=== PATIENT | female | born 1995 | race American Indian/Alaskan Native ===

== ENCOUNTER 2017-07-30 00:06 | Outpatient (CLI) | payer MEDICAID ==
[2017-07-30 00:52] VITALS: BP 107/61
--- NOTE | 2017-07-30 04:56 | Ultrasound Report ---
FINAL REPORT EXAM: US OB BPP WO NON-STRESS HISTORY: post dates; COMPARISON: None available. TECHNIQUE: Several real-time grayscale and color Doppler images were obtained. FINDINGS: Normal breathing movements, normal movements, normal posterior tone. Normal qualitative the amniotic fluid volume. heart rate 141 beats per minute. Largest pocket of amniotic fluid 6.0 centimeters. IMPRESSION: Biophysical profile score 8/8.
== END 2017-07-30 03:30 | disposition home or self-care (01) ==
LOC: TRG 00:06
PROVIDERS: ATTEND Obstetrics & Gynecology
DX: O99.213 Obesity complicating pregnancy, third trimester (principal); O99.013 Anemia complicating pregnancy, third trimester; O47.1 False labor at or after 37 completed weeks of gestation; E66.9 Obesity, unspecified; D64.9 Anemia, unspecified; Z87.891 Personal history of nicotine dependence; Z3A.40 40 weeks gestation of pregnancy
CPT/HCPCS: 59025; 76819

== ENCOUNTER 2017-07-30 11:43 | Outpatient (CLI) | payer MEDICAID ==
[2017-07-31 12:45] VITALS: BP 108/60
== END 2017-07-30 13:49 | disposition home or self-care (01) ==
LOC: TRG 11:43
PROVIDERS: ATTEND Obstetrics & Gynecology
DX: O99.333 Smoking (tobacco) complicating pregnancy, third trimester (principal); O99.213 Obesity complicating pregnancy, third trimester; O99.013 Anemia complicating pregnancy, third trimester; O47.1 False labor at or after 37 completed weeks of gestation; Z3A.40 40 weeks gestation of pregnancy
CPT/HCPCS: 59025

== ENCOUNTER 2017-07-30 20:39 | Inpatient (IN) | payer MEDICAID ==
[2017-07-31] MEDS ORDERED: SUBLIMAZE IV PRN (00:41)
[2017-07-31] MEDS ORDERED: ZOFRAN IV PRN ×2 (00:41→18:21)
[2017-07-31] MEDS ORDERED: ePHEDrine SULFATE IV PRN (00:41)
[2017-07-31] MEDS ORDERED: BRETHINE SUB-Q PRN (00:41)
[2017-07-31] MEDS ORDERED: NARCAN 0.4 MG/1 ML IV PRN (00:41)
[2017-07-31] MEDS ORDERED: MINERAL OIL PO PRN (00:41)
[2017-07-31] MEDS ORDERED: BRETHINE IVP PRN (00:41)
[2017-07-31] MEDS ORDERED: XYLOCAINE 2% INFILTRATI ONE ×2 (00:41→12:21)
[2017-07-31] MEDS ORDERED: STADOL IV PRN (00:41)
[2017-07-31] MEDS ORDERED: PHENERGAN PO PRN ×2 (00:41→18:21)
[2017-07-31] MEDS ORDERED: PITOCin/NS 20 UNIT/1000ML DRIP 20 UNITS/1,000 ML BAG IV SCH ×2 (01:00→18:21)
[2017-07-31] MEDS: LACTATED RINGERS 1,000 ML IV SCH ×4 (01:19→08:56)
[2017-07-31 01:29] LABS: Hematocrit 36.2 % (30.3-42.9); Hemoglobin 11.2 gm/dl (10.1-14.3); Mean Corpuscular HGB Conc 31 % (30-34); Mean Corpuscular Volume 81 fl (79-97); Platelet Count 333 K/mm3 (140-440); Red Blood Count 4.49 M/mm3 (3.65-5.03); Red Cell Distribution Width 15.1 % (13.2-15.2)
[2017-07-31 01:31] LABS: Mean Corpuscular Hemoglobin 25 pg (28-32)
[2017-07-31] MEDS ORDERED: POLYCILLIN/NS 2 GM/100 ML 2 GM/100 ML BAG IV ONE (01:38)
[2017-07-31] MEDS ORDERED: NARCAN 2 MG/2 ML IV PRN (02:14)
[2017-07-31] MEDS: ePHEDrine SULFATE IV PRN ×3 (02:49→08:58)
[2017-07-31] MEDS ORDERED: fentaNYL-BUPIV 2 MCG/ML-0.125% 200 MCG/100 ML BAG EPIDURAL SCH (03:00)
[2017-07-31] MEDS ORDERED: XYLOCAINE MPF 2% ONE (04:50)
[2017-07-31] MEDS ORDERED: XYLOCAINE TOPICAL 5% TP ONE (05:25)
[2017-07-31] MEDS ORDERED: AMPICILLIN/NS 1 GM/50 ML 1 GM/50 ML BAG IV SCH (05:30)
[2017-07-31] MEDS ORDERED: XYLOCAINE 2% UROJET UR ONE (05:30)
[2017-07-31] MEDS ORDERED: EMLA TP ONE (05:37)
--- NOTE | 2017-07-31 07:38 | History and Physical Report ---
History of Present Illness Date of examination: 07/31/17 Date of admission: 07/31/17 00:43 Chief complaint: contractions History of present illness: Pt is a 22 year old -[place] female primigravida SHAQUILLE 07/28/17 at 40w3d who presents with regular contractions and cervical change last night. Per the nurse covering overnight, she has progressed to 7 cm. She denies vaginal bleeding. She has had care at [facility] since entry into care at 18 wks complicated by late entry to care, alpha thalassemia carrier status and obesity. She is GBS positive. Past History Past Medical History: hematologic disorders (Alpha Thalassemia carrier ) Past Surgical History: no surgical history Family/Genetic History: none Social history: no significant social history - Obstetrical History Expected Date of Delivery: 07/28/17 Actual Gestation: 40 Week(s) 3 Day(s) : 1 Medications and Allergies Allergies Allergy/AdvReac Type Severity Reaction Status Date / Time No Known Allergies Allergy Verified 07/31/17 00:47 Home Medications Medication Instructions Recorded Confirmed Last Taken Type No Known Home Medications [No 07/30/17 07/30/17 Unknown History Reported Home Medications] Active Meds: Active Medications Butorphanol Tartrate (Stadol) 2 mg IV Q2H PRN PRN Reason: Pain , Severe (7-10) Ephedrine Sulfate (Ephedrine Sulfate) 10 mg IV Q2M PRN PRN Reason: Hypotension Last Admin: 07/31/17 02:49 Dose: 10 mg Fentanyl (Sublimaze) 100 mcg IV Q2H PRN PRN Reason: Labor Pain Last Admin: 07/31/17 01:19 Dose: 100 mcg Lactated Ringer's (Lactated Ringers) 1,000 mls @ 125 mls/hr IV DIRECT SAHIL Last Admin: 07/31/17 03:50 Dose: 125 mls/hr Oxytocin/Sodium Chloride (Pitocin/Ns 20 Unit/1000ml Drip) 20 units in 1,000 mls @ 125 mls/hr IV DIRECT ASHIL Fentanyl/Bupivacaine/Sodium Chlor (Fentanyl-Bupiv 2 Mcg/Ml-0.125%) 200 mcg in 100 mls @ 12 mls/hr EPIDURAL TITR SAHIL; Protocol Last Admin: 07/31/17 02:58 Dose: 12 mls/hr Ampicillin Sodium (Ampicillin/Ns 1 Gm/50 Ml) 1 gm in 50 mls @ 100 mls/hr IV Q4HR [facility]; Protocol Last Admin: 07/31/17 06:10 Dose: 100 mls/hr Mineral Oil (Mineral Oil) 30 ml PO QHS PRN PRN Reason: Constipation Naloxone HCl (Narcan 0.4 Mg/1 Ml) 0.1 mg IV Q2MIN PRN PRN Reason: Res Rate </= 8 or 02 SAT < 92% Naloxone HCl (Narcan 2 Mg/2 Ml) 0.2 mg IV Q5M PRN PRN Reason: Respiratory sedation Ondansetron HCl (Zofran) 4 mg IV Q8H PRN PRN Reason: Nausea And Vomiting Promethazine HCl (Phenergan) 25 mg PO Q6H PRN PRN Reason: Nausea And Vomiting Terbutaline Sulfate (Brethine) 0.25 mg SUB-Q ONCE PRN PRN Reason: Hyperstimulation/Hypertonicity Terbutaline Sulfate (Brethine) 0.25 mg IVP ONCE PRN PRN Reason: Hyperstimulation/Hypertonicity Review of Systems All systems: negative - Vital Signs Vital signs: Vital Signs Temp BP 98.8 F 121/62 07/30/17 22:09 07/30/17 22:09 Temp Pulse Resp BP Pulse Ox 98.6 F 92 H 18 109/59 98 07/31/17 01:32 07/31/17 07:41 07/31/17 01:49 07/31/17 07:41 07/31/17 05:46 - Physical Exam Breasts: Positive: deferred Uterus: Positive: enlarged (gravid ) Extremities: Positive: normal - Obstetrical FHR: category 2 Uterine Contraction Monitor Mode: External Cervical Dilatation: 9 Cervical Effacement Percentage: 90 station: -2 Uterine Contraction Pattern: Irregular Uterine Tone Measurement Phase: Resting Uterine Contraction Intensity: Moderate Results Result Diagrams: 07/31/17 01:00 Abnormal lab results 07/31/17 Range/Units 01:00 WBC 15.6 H (4.5-11.0) K/mm3 MCH 25 L (28-32) pg All other labs normal. Assessment and Plan A: IUP at 40w3d Active labor Obesity GBS positive status Suboptimal pain control with epidural P: Admit to labor and delivery Consult anesthesia Routine intrapartum management
--- NOTE | 2017-07-31 08:20 | Event Note ---
Date: 07/31/17 Pt comfortable now with epidural. Pt with rim/100/-2. AROM- clear fluid. FSE placed. Continue routine intrapartum management.
[2017-07-31] MEDS ORDERED: PITOCin/NS 30 UNIT/500ML 30 UNITS/500 ML BAG IV SCH (12:00)
--- NOTE | 2017-07-31 13:09 | Procedure Note ---
OB Delivery Note - Delivery Date of Delivery: 07/31/17 Surgeon: DARNELL GRIFFITH Estimated blood loss: 300cc - Vaginal Delivery presentation: vertex Delivery position: OP Intrapartum events: PROM->1hr before delivery, meconium, mult.variable deceleratio Delivery induction: none Delivery augmentation: rupture of membranes, pitocin Delivery monitor: external FHT, external uterine Route of delivery: Delivery placenta: spontaneous Delivery cord: 3 umbilical vessels Episiotomy: none Delivery laceration: 1st degree, vaginal side wall Delivery repair: vicryl Anesthesia: local, epidural Delivery comments: Pt progressed to complete/complete/+2 and pushed to delivar a viable female over intact perineum under epidural anesthesia by . Head delivered in ROP position,quickly followed by shoulders and body. bulb suctioned and placed on maternal abdomen. Cord clamped and cut. Placenta delivered spontaneously (3VC, intact). Vagina and perineum explored. Two vaginal lacerations and one labial laceration repaired with 3-0 Vicryl in a standard fashion. EBL 300 mL. - A at 1 minute: 8 at 5 minutes: 9 Infant Gender: Female (3272g (7lb 3.4 oz) @ 1211 pm)
[2017-07-31] MEDS ORDERED: METHERGINE IM ONE (16:27)
[2017-07-31] MEDS ORDERED: BENADRYL PO PRN (18:21)
[2017-07-31] MEDS ORDERED: DERMOPLAST TP PRN (18:21)
[2017-07-31] MEDS ORDERED: TYLENOL PO PRN (18:21)
[2017-07-31] MEDS ORDERED: PHENERGAN PR PRN (18:21)
[2017-07-31] MEDS ORDERED: NORCO 5/325 PO PRN (18:21)
[2017-07-31] MEDS ORDERED: TUCKS PAD TP PRN (18:21)
[2017-07-31] MEDS ORDERED: SODIUM CHLORIDE FLUSH SYRINGE 10 ML IV NR (18:21)
[2017-07-31] MEDS ORDERED: DULCOLAX PR PRN (18:21)
[2017-07-31] MEDS ORDERED: MILK OF MAGNESIA PO PRN (18:21)
[2017-07-31] MEDS ORDERED: LANSINOH TP PRN ×2 (18:21)
[2017-07-31] MEDS: FEOSOL PO SCH (22:37)
[2017-08-01] MEDS: MOTRIN PO SCH ×4 (00:06→18:33)
[2017-08-01 06:54] LABS: Hematocrit 31.9 % (30.3-42.9); Hemoglobin 10.2 gm/dl (10.1-14.3)
[2017-08-01] MEDS: FEOSOL PO SCH ×2 (10:37→21:54)
[2017-08-01] MEDS ORDERED: M-M-R II VACCINE SUB-Q ONE (13:11)
[2017-08-01] MEDS ORDERED: BOOSTRIX IM ONE (13:11)
--- NOTE | 2017-08-01 16:39 | Progress Note ---
Assessment and Plan A: PPD#1 s/p at term, Asymptomatic anemia P: Routine care. Anticipate discharge tomorrow. Subjective - Subjective Date of service: 08/01/17 Principal diagnosis: s/p at term Interval history: No overnight events. Patient reports: appetite normal, voiding normally, pain well controlled, ambulating normally : doing well, bottle feeding Objective - Vital Signs Latest vital signs: Vital Signs Temp Pulse Resp Resp BP BP Pulse Ox 08/01/17 12:09 18 08/01/17 11:48 97.9 F 94 H 20 124/66 98 08/01/17 08:36 97.9 F 81 16 113/73 98 08/01/17 00:55 98.3 F 107 H 20 113/59 08/01/17 00:06 18 07/31/17 21:02 99.1 F 104 H 18 121/64 07/31/17 21:00 16 07/31/17 18:33 98.5 F 98 H 20 110/69 Intake and Output 08/01/17 08/01/17 08/01/17 06:59 14:59 22:59 Intake Total 360 Balance 360 Intake: Intake, Free Water 360 Other: # Voids Void 1 1 - Exam Breasts: Present: deferred Cardiovascular: Present: Regular rate Lungs: Present: Clear to auscultation Abdomen: Present: soft (obese ) Uterus: Present: fundal height at umbilicus Extremities: Present: edema (trace )
--- NOTE | 2017-08-01 16:40 | Discharge Summary ---
Providers - Providers Date of Admission: 07/31/17 00:43 Date of discharge: 08/02/17 Attending physician: MAUREEN EISENBERG MD 07/31/17 18:21 Consult to Social Worker Clinical [CONS] Routine Reason For Exam: assistance with , SNS Primary care physician: MAUREEN EISENBERG MD Hospitalization Reason for admission: active labor Delivery: Procedure details: Please see delivery note. Episiotomy: none Laceration: vaginal side wall, 1st degree Other procedures: none complications: none Discharge diagnosis: IUP at term delivered [place] baby: female Hospital course: Pt was admitted in active labor and went on to have a spontaneous vaginal delivery which she tolerated well. Her course was uncomplicated and she met discharge criteria on PPD#2. She will follow up in the office in [address] Eisenberg. Condition at discharge: Stable Disposition: DC-01 TO HOME OR SELFCARE - Discharge Diagnoses (1) Term of female Status: Acute (2) Obesity Status: Acute Qualifiers: Obesity type: unspecified obesity type (3) Anemia Status: Acute Plan - Discharge Medications Prescriptions: HYDROcodone/APAP 5-325 [[place] 5/325] 1 each PO Q6HR PRN #20 tablet PRN Reason: Pain Ibuprofen 800 mg PO Q8H PRN #30 tablet PRN Reason: Pain - Provider Discharge Summary Activity: routine, no sex for 6 weeks, no heavy lifting 4 weeks, no strenuous exercise Diet: routine Instructions: routine Additional instructions: [] Smoking cessation referral if applicable(refer to patient education folder for contact #) [] Refer to [facility] Booklet Call your doctor immediately for: * Fever > 100.5 * Heavy vaginal bleeding ( >1 pad per hour) * Severe persistent headache * Shortness of breath * Reddened, hot, painful area to leg or breast * Drainage or odor from incision. * Keep incision clean and dry at all times and follow doctor's instructions regarding bathing/showering - Follow up plan Follow up: MAUREEN EISENBERG MD [Primary Care Provider] - 08/28/17 (please schedule appt)
[2017-08-02] MEDS: MOTRIN PO SCH ×2 (00:10→13:02)
[2017-08-02] MEDS: FEOSOL PO SCH (10:15)
[2017-08-02 14:17] VITALS: BP 120/68
== END 2017-08-02 16:30 | disposition home or self-care (01) | DRG 775 ==
LOC: TRG 20:39 → LD 07-31 00:43 → TRG 07-31 00:43 → OB 07-31 17:04
PROVIDERS: ADMIT Obstetrics & Gynecology; ATTEND Obstetrics & Gynecology
PROC: 10E0XZZ Delivery of Products of Conception, External Approach (ICD-10-PCS; 2017-07-31)
PROC: 0HQ9XZZ Repair Perineum Skin, External Approach (ICD-10-PCS; 2017-07-31)
PROC: 00HU33Z Insertion of Infusion Device into Spinal Canal, Percutaneous Approach (ICD-10-PCS; 2017-07-31)
PROC: 3E0R3BZ Introduction of Anesthetic Agent into Spinal Canal, Percutaneous Approach (ICD-10-PCS; 2017-07-31)
PROC: 10907ZC Drainage of Amniotic Fluid, Therapeutic from Products of Conception, Via Natural or Artificial Opening (ICD-10-PCS; 2017-07-31)
PROC: 3E0234Z Introduction of Serum, Toxoid and Vaccine into Muscle, Percutaneous Approach (ICD-10-PCS; principal; 2017-08-01)
DX: O76 Abnormality in fetal heart rate and rhythm complicating labor and delivery (principal); O99.824 Streptococcus B carrier state complicating childbirth; O75.89 Other specified complications of labor and delivery; O99.214 Obesity complicating childbirth; O70.0 First degree perineal laceration during delivery; E66.9 Obesity, unspecified; Z37.0 Single live birth; Z3A.40 40 weeks gestation of pregnancy; Z23 Encounter for immunization; O90.81 Anemia of the puerperium; D64.9 Anemia, unspecified; O77.0 Labor and delivery complicated by meconium in amniotic fluid; D56.3 Thalassemia minor; Z68.34 Body mass index [BMI] 34.0-34.9, adult
CPT/HCPCS: 36415; 85014; 85018; 85027; 86592; 86850; 86900; 86901; J0290; J2210; J2590; J3010; J7120